=== PATIENT | female | born 1955 | race Caucasian/White ===

== ENCOUNTER → 2017-08-29 | Outpatient (CLI) | payer BC ==
[~2017-08-29] MED LIST: ASPI-1471 PO; ATR10 PO; CEPH250C37 PO; CIP500 PO; CIPR250S2 PO; FLUT16SP19; IBUP600T22 PO; LEVO50TA86 PO; LEVO75TA73 PO; LOSA50TA72 PO; MONT10TA PO; NAPR220C12 PO; ONDA4TAB PO; OXYC-865 PO; PER PO; TAM4 PO; TAMS0.4C25 PO
== END ==
LOC: LAB 14:59
PROVIDERS: ATTEND Otolaryngology
DX: J30.9 Allergic rhinitis, unspecified (principal)
CPT/HCPCS: 36415; 86003

== ENCOUNTER → 2017-09-09 | Outpatient (CLI) | payer BC ==
--- NOTE | 2017-09-09 11:19 | RADIOLOGY IMAGING REPORT ---
FACILITY: [facility] PATIENT NAME: Brooklyn Cervantes : 1955 MR: [id number] V: [id number] EXAM DATE: ORDERING PHYSICIAN: MANSOOR HADLEY TECHNOLOGIST: Location: [facility] Patient: Brooklyn Cervantes : 1955 Visit/Account:[id number] Date of Sevice: 09/09/2017 EXAMINATION: CT of the Paranasal Sinuses HISTORY: Chronic sinusitis. TECHNIQUE: Contiguous axial images were obtained through the paranasal sinuses without intravenous c ontrast administration. Coronal and sagittal reformatted images were obtained from the axial source d octaviano. One of the following dose optimization techniques was utilized in the performance of this exam: Autom ated exposure control; adjustment of the mA and/or kV according to the patient's size; or use of an i terative reconstruction technique. Specific details can be referenced in the facility's radiology C T exam operational policy. COMPARISON: None. FINDINGS: Maxillary sinuses: Negative. Frontal sinuses: Negative. Ethmoid air cells: Mild mucosal thickening. Sphenoid sinuses: Negative. Ostiomeatal units: Patent. Nasal septum / nasal cavity: Rightward nasal septal deviation anteriorly. Leftward nasal septal angela ation and spurring posteriorly. Orbits: Negative. Visualized intracranial contents/soft tissues: Negative. TMJs: Negative. IMPRESSION: 1. Mild mucosal thickening in the ethmoid air cells. Paranasal sinuses are otherwise clear. 2. Rightward nasal septal deviation anteriorly. Leftward nasal septal deviation posteriorly. Report Dictated By: Daryl Fox MD at 09/09/2017 11:12 AM Report E-Signed By: Daryl Fox MD at 09/09/2017 11:16 AM WSN:[id number]
== END ==
LOC: CT 06:56
PROVIDERS: ATTEND Otolaryngology
DX: J32.9 Chronic sinusitis, unspecified (principal); J34.2 Deviated nasal septum
CPT/HCPCS: 70486

== ENCOUNTER → 2017-11-03 | Outpatient (CLI) | payer BC ==
[~2017-11-03] MED LIST changes: +GARL10005 PO; +PRAV20TA65 PO; +[UNRECOGNIZED DRUG - OTHER] PO
[2017-11-03 13:54] LABS: PLATELET COUNT, AUTOMATED 211 K/uL (150-450)
[2017-11-03 13:58] LABS: INR 0.96
--- NOTE | 2017-11-03 14:08 | EKG ---
FACILITY: [facility] PATIENT NAME: EPI BOWIE : [id number] MR: [id number] V: [id number] EXAM DATE: ORDERING PHYSICIAN: MANSOOR HADLEY TECHNOLOGIST: KENIA Mirza Reason : PRE-OP Blood Pressure : / mmHG Vent. Rate : 052 BPM Atrial Rate : 052 BPM P-R Int : 142 ms QRS Dur : 090 ms QT Int : 440 ms P-R-T Axes : 056 006 017 degrees QTc Int : 409 ms Sinus bradycardia Minimal voltage criteria for LVH, may be normal variant No ST-T abnormalities No previous ECGs available Confirmed by LASHANDA ORELLANA ([id number]) on 11/03/2017 4:05:44 PM Referred By: JOMAR Confirmed By:LASHANDA ORELLANA
== END ==
LOC: LAB 13:26
PROVIDERS: ATTEND Otolaryngology
DX: Z01.812 Encounter for preprocedural laboratory examination (principal)
CPT/HCPCS: 36415; 82310; 82374; 82435; 82565; 82947; 84132; 84295; 84520; 85025; 85610; 85730; 93005

== ENCOUNTER 2017-11-10 01:02 | Day surgery (SDC) | payer BC ==
[~2017-11-10] VITALS: Ht 170.2 cm; Wt 110.2 kg
[2017-11-10] MEDS: LIDOCAINE/SOD BICARB 8.4% SYR ID ONE ×2 (07:30→07:38)
[2017-11-10] MEDS ORDERED: ONDANSETRON 4 MG/2 ML VIAL ONE (07:41)
[2017-11-10] MEDS ORDERED: PROPOFOL EMUL(*) 10MG/ML 20 ML 20 ML ONE (07:41)
[2017-11-10] MEDS ORDERED: LIDOCAINE MPF 1% 5 ML VIAL ONE (07:41)
[2017-11-10] MEDS ORDERED: DEXAMETHASONE SOD 4 MG/ML VIAL ONE (07:41)
[2017-11-10] MEDS ORDERED: KETAMINE HCL 200 MG/20 ML MDV ONE (07:42)
[2017-11-10] MEDS ORDERED: fentaNYL CITR 100 MCG/2 ML AMP ONE ×2 (07:42→09:50)
[2017-11-10 07:52] VITALS: BP 150/83
[2017-11-10] MEDS ORDERED: ceFAZolin(*) 2GM/D5W 50ML 50 ML IVPB ONE (07:55)
[2017-11-10] MEDS ORDERED: NORMOSOL R SOLN(*) 1000 ML BAG 1,000 ML IV PRN (08:00)
[2017-11-10] MEDS ORDERED: MIDAZOLAM 2 MG/2 ML VIAL IVP PRN (08:00)
[2017-11-10] MEDS ORDERED: FAMOTIDINE 20 MG TAB PO ONE (08:00)
[2017-11-10] MEDS ORDERED: OXYMETAZOLINE SPRAY 15 ML BTL ONE ×2 (08:22→08:40)
[2017-11-10] MEDS ORDERED: LIDO/EPI 1% MDV 1:100,000 20ML INFIL ONE ×2 (08:22→08:40)
[2017-11-10] MEDS ORDERED: BACITRACIN OINT 15 GM TUBE TP ONE (08:22)
[2017-11-10] MEDS ORDERED: MUPIROCIN 2% OINT 22 GM TUBE TP ONE (08:22)
[2017-11-10] MEDS ORDERED: NS(*) 0.9% 250 ML BAG 250 ML ONE (08:23)
[2017-11-10] MEDS ORDERED: GLYCOPYRROLATE 0.2MG/ML 1 ML INJ ONE (09:00)
[2017-11-10] MEDS ORDERED: HYDR-4309 PO (09:29)
[2017-11-10] MEDS ORDERED: CEFU500T10 PO (09:30)
[2017-11-10] MEDS ORDERED: APAP/HYDROCODONE 325/5 TAB ONE (10:25)
[2017-11-10 10:35] VITALS: BP 135/77
--- NOTE | 2017-11-10 10:41 | OPERATIVE REPORT 1 ---
EVENT DATE: November 10, 2017 SURGEON: Savage Queen MD ANESTHESIOLOGIST: Markel White MD ANESTHESIA: LMA. PROCEDURES PERFORMED 1. Septoplasty. 2. Submucous resection of the bilateral inferior turbinates. PREOPERATIVE DIAGNOSES 1. Nasal septal deviation. 2. Bilateral inferior turbinate hypertrophy. POSTOPERATIVE DIAGNOSES 1. Nasal septal deviation. 2. Bilateral inferior turbinate hypertrophy. INDICATIONS Please refer to the preoperative note. DESCRIPTION OF PROCEDURE The patient was positively identified in the preoperative area. She was accompanied there by her daughter. Risks were again explained and included, but were not limited to bleeding, infection, nasal septal perforation, and those associated with anesthesia. She acknowledged understanding those risks. She was then brought back to the operating suite, placed supine on the operative table, and anesthesia was administered. Once asleep, the patient was positioned and prepped and draped in the usual sterile fashion. I initially decongested the nose by injecting approximately 10 mL of 1% lidocaine with epinephrine to the bilateral anterior nasal septal mucosa along the base of the bilateral inferior turbinates. Both nasal cavities were subsequently packed with cottonoids containing Afrin solution. These were subsequently removed, and nasal endoscopy was performed. This was notable for severe left nasal septal deviation. A Brandyn incision was made in the left anterior nasal septal mucosa. A subperichondral flap was elevated, and an incision was then made in the anterior nasal septal cartilage approximately 5 mm posterior to the original Brandyn incision. A contralateral flap was raised. The deviated portion of the patient's nasal septal cartilage and bone was then removed. The patient had a small [id number] defect in the anterior nasal septal mucosa. A small piece of B[employer]es[employer] dermal graft was placed. The Brandyn incision was then reapproximated with interrupted chromic suture. I then addressed the inferior turbinates. A stab incision was made at the base of the left inferior turbinate. A chondral elevator was used to elevate the mucosa off the underlying bone. A submucous resection was performed of the turbinate with the blade of the microdebrider. The stab incision was then cauterized by suction Bovie electrocautery. The contralateral inferior turbinate was addressed in a similar fashion. Bilateral nasal septal splints were then placed and secured to the columella with a suture. The patient was then returned to Anesthesia for emergence. Estimated blood loss 25 mL. No complications. MTDD
[2017-11-10 11:02] VITALS: BP 143/90
[2017-11-10 11:05] VITALS: BP 140/98
== END 2017-11-10 10:35 | disposition home or self-care (01) ==
LOC: OR 01:02
PROVIDERS: ATTEND Otolaryngology
DX: J34.2 Deviated nasal septum (principal); J34.3 Hypertrophy of nasal turbinates
CPT/HCPCS: 30140; 30520; J1100; J2001; J2250; J2405; J2704; J3010; J3490; J7050; C1763; J0690